=== PATIENT | female | born 1955 | race Caucasian/White ===

== ENCOUNTER → 2020-01-19 13:39 | Outpatient (CLI) | payer BC, SELFPAY | PROVIDERS: PCP Internal Medicine Adolescent Medicine; Visit Provider Nurse Practitioner Family | DX: G47.33 Obstructive sleep apnea (adult) (pediatric) (principal) | CPT/HCPCS: G0399 ==

== ENCOUNTER 2024-03-30 08:57 | Outpatient (CLI) | payer MEDICARE, SELFPAY ==
--- NOTE | 2024-03-30 09:02 | XR_ITS ---
FINAL REPORT TECHNIQUE: Bone densitometry calculations of the lumbar spine and left hip were obtained. CLINICAL HISTORY: SCREENING COMPARISON: None FINDINGS: Using L1-4, the bone mineral density of the spine is 1.161 g/cm2, corresponding to T-score of 1.0. Using the left hip, the bone mineral density of the femoral neck is 0.931 g/cm2, corresponding to a T-score of 0.7. NOTE: T-score: Standard deviation compared with peak bone mass of young adult mean. *Following the recommendations of the International Society of Bone densitometry, classification of hip BMD is based on the lower of two T-scores; total hip or femoral neck. IMPRESSION: Normal bone mineral density of the lumbar spine and hip. Reviewed, Interpreted and Dictated by Kevin Cole MD Transcribed by Cathy Washington Authenticated and [facility]
== END 2024-03-30 23:59 | disposition home or self-care (01) ==
LOC: RAD 08:57
PROVIDERS: PCP Nurse Practitioner Family; Visit Provider Nurse Practitioner Family
DX: Z78.0 Asymptomatic menopausal state (principal)
CPT/HCPCS: 77080